=== PATIENT | male | born 1960 | race Caucasian/White ===

== ENCOUNTER 2021-07-07 08:22 | Outpatient (REF) | payer BC, SELFPAY ==
[2021-07-07 10:06] LABS: MANUAL DIFF FLAG NO
[2021-07-07 10:10] LABS: Basophils Percent Auto 0.4 % (0-2); Eosinophils Absolute Auto 0.2 X10*3/uL (0.0-0.4); Hematocrit 42.9 % (42-52); Hemoglobin 14.6 g/dl (14.0-18.0); Imm Gran Abs Auto 0.03 X10*3/uL (0.00-0.03); Imm Gran Pct Auto 0.4 % (0.0-0.4); Lymphocytes Absolute Auto 1.8 X10*3/uL (1.2-4.9); Mean Corpuscular Hemoglobin 30.9 pg (27.0-33.0); Mean Corpuscular Volume 90.7 fL (80-98); Mean Platelet Volume 9.9 fL (9.4-12.4); Monocytes Absolute Auto 0.6 X10*3/uL (0.1-1.2); Monocytes Percent Auto 9.3 % (2-11); Neutrophils Absolute Auto 4.1 X10*3/uL (2.0-8.3); Neutrophils Percent Auto 60.9 % (45-73); Platelet Count 282 X10*3/uL (160-400); Red Blood Count 4.73 X10*6/uL (4.60-5.80); Red Cell Distribution Width 11.9 % (11.0-16.0); White Blood Count 6.8 X10*3/uL (4.8-10.8)
[2021-07-07 10:44] LABS: Alanine Aminotransferase 75 U/L (0-40); Albumin Level 4.8 g/dL (3.5-5.0); Alkaline Phosphatase 71 U/L (39-117); Anion Gap 15 (12-20); Aspartate Amino Transferase 36 U/L (5-37); Bilirubin Total 0.9 mg/dL (0.0-1.0); Blood Urea Nitrogen 16 mg/dL (9-16); Calcium 9.4 mg/dL (8.4-10.2); Carbon Dioxide 26 mmol/L (22-29); Chloride 102 mmol/L (96-108); Cholesterol 212 mg/dL; Estimated Glomerular Filt Rate > 60; Glucose Random 113 mg/dL (60-115); HDL Cholesterol 84 mg/dL; LDL Cholesterol Calculated 91 mg/dl; Sodium 139 mmol/L (135-145); Total Protein 7.4 g/dL (6.5-8.0); Triglycerides 185 mg/dL; Uric Acid 6.7 mg/dL (3.4-7.0)
[2021-07-07 11:03] LABS: Free T4 (Free Thyroxine) 0.84 ng/dL (0.71-1.85); Prostate Specific Antigen Scr 0.82 ng/mL (<0.05-4.0); Thyroid Stimulating Hormone 1.78 uIU/mL (0.32-4.0)
[2021-07-07 11:32] LABS: Folate > 20.0 ng/mL (> or = 4.0); Vitamin B12 321 pg/mL (200-900)
== END 2021-07-07 08:23 | disposition home or self-care (01) ==
LOC: HO.10HDL 08:22
PROVIDERS: Visit Provider Internal Medicine
DX: Z12.5 Encounter for screening for malignant neoplasm of prostate (principal); E78.00 Pure hypercholesterolemia, unspecified; M10.9 Gout, unspecified
CPT/HCPCS: 36415; 80053; 80061; 82607; 82746; 84153; 84439; 84443; 84550; 85025

== ENCOUNTER 2022-07-24 09:29 | Outpatient (REF) | payer BC, SELFPAY ==
[2022-07-24 10:04] LABS: MANUAL DIFF FLAG NO
[2022-07-24 11:32] LABS: Basophils Absolute Auto 0.1 X10*3/uL (0.0-0.2); Eosinophils Absolute Auto 0.2 X10*3/uL (0.0-0.4); Eosinophils Percent Auto 2.4 % (0-4); Hematocrit 41.8 % (42.0-52.0); Hemoglobin 14.2 g/dl (14.0-18.0); Imm Gran Abs Auto 0.03 X10*3/uL (0.00-0.03); Imm Gran Pct Auto 0.4 % (0.0-0.4); Lymphocytes Absolute Auto 1.6 X10*3/uL (1.2-4.9); Lymphocytes Percent Auto 23.8 % (20-40); Mean Corpuscular Hemoglobin 30.9 pg (27.0-33.0); Mean Corpuscular Volume 90.9 fL (80.0-98.0); Mean Platelet Volume 9.8 fL (9.4-12.4); Monocytes Absolute Auto 0.6 X10*3/uL (0.1-1.2); Monocytes Percent Auto 9.2 % (2-11); Neutrophils Absolute Auto 4.3 x10*3/uL (2.0-8.3); Neutrophils Percent Auto 63.2 % (45-73); Platelet Count 299 X10*3/uL (160-400); White Blood Count 6.8 X10*3/uL (4.8-10.8)
[2022-07-24 12:04] LABS: Estimated Average Glucose 97 mg/dL
[2022-07-24 12:53] LABS: Free T4 (Free Thyroxine) 0.89 ng/dL (0.71-1.85); Prostate Specific Antigen Scr 0.85 ng/mL (<0.05-4.0); Thyroid Stimulating Hormone 1.51 uIU/mL (0.32-4.0)
[2022-07-24 12:58] LABS: Alanine Aminotransferase 75 U/L (0-40); Albumin Level 4.7 g/dL (3.5-5.0); Alkaline Phosphatase 77 U/L (39-117); Anion Gap 17 (12-20); Aspartate Amino Transferase 39 U/L (5-37); Bilirubin Total 0.8 mg/dL (0.0-1.0); Blood Urea Nitrogen 15 mg/dL (9-16); Calcium 9.2 mg/dL (8.4-10.2); Carbon Dioxide 25 mmol/L (22-29); Chloride 102 mmol/L (96-108); Cholesterol 207 mg/dL; Estimated Glomerular Filt Rate > 60; Glucose Random 111 mg/dL (60-115); HDL Cholesterol 90 mg/dL; LDL Cholesterol Calculated 93 mg/dl; Sodium 140 mmol/L (135-145); Total Protein 7.3 g/dL (6.5-8.0); Triglycerides 124 mg/dL; Uric Acid 5.8 mg/dL (3.4-7.0)
[2022-07-24 13:04] LABS: Folate > 20.0 ng/mL (> or = 4.0); Vitamin B12 322 pg/mL (200-900)
== END 2022-07-24 09:30 | disposition home or self-care (01) ==
LOC: HO.LAB 09:29
PROVIDERS: PCP Internal Medicine; Visit Provider Internal Medicine
DX: Z12.5 Encounter for screening for malignant neoplasm of prostate (principal); R73.02 Impaired glucose tolerance (oral); E78.5 Hyperlipidemia, unspecified; E78.00 Pure hypercholesterolemia, unspecified; M10.9 Gout, unspecified
CPT/HCPCS: 36415; 80053; 80061; 82607; 82746; 83036; 84153; 84439; 84443; 84550; 85025

== ENCOUNTER 2023-12-09 07:45 | Outpatient (REF) | payer MEDICARE, BC, SELFPAY ==
[2023-12-09 07:59] LABS: MANUAL DIFF FLAG NO
[2023-12-09 08:08] LABS: Basophils Percent Auto 0.8 % (0-2); Eosinophils Absolute Auto 0.1 X10*3/uL (0.0-0.4); Eosinophils Percent Auto 3.5 % (0-4); Hemoglobin 11.4 g/dl (14.0-18.0); Imm Gran Abs Auto 0.01 X10*3/uL (0.00-0.03); Imm Gran Pct Auto 0.3 % (0.0-0.4); Lymphocytes Absolute Auto 0.6 X10*3/uL (1.2-4.9); Lymphocytes Percent Auto 17.1 % (20-40); Mean Corpuscular HGB Conc 34.5 g/dl (31.0-36.0); Mean Corpuscular Hemoglobin 32.4 pg (27.0-33.0); Mean Corpuscular Volume 93.8 fL (80.0-98.0); Mean Platelet Volume 8.6 fL (9.4-12.4); Monocytes Absolute Auto 0.5 X10*3/uL (0.1-1.2); Neutrophils Absolute Auto 2.5 x10*3/uL (2.0-8.3); Neutrophils Percent Auto 66.3 % (45-73); Platelet Count 230 X10*3/uL (160-400); Red Blood Count 3.52 X10*6/uL (4.60-5.80); Red Cell Distribution Width 12.1 % (11.0-16.0); White Blood Count 3.8 X10*3/uL (4.8-10.8)
[2023-12-09 08:42] LABS: Alanine Aminotransferase 12 U/L (0-40); Albumin Level 4.4 g/dL (3.5-5.0); Alkaline Phosphatase 70 U/L (39-117); Anion Gap 10 (12-20); Aspartate Amino Transferase 14 U/L (5-37); Bilirubin Total 0.5 mg/dL (0.0-1.0); Blood Urea Nitrogen 25 mg/dL (9-16); Calcium 9.4 mg/dL (8.4-10.2); Carbon Dioxide 29 mmol/L (22-29); Chloride 100 mmol/L (96-108); Cholesterol 177 mg/dL (<200); Estimated Glomerular Filt Rate 43; Glucose Random 102 mg/dL (60-115); HDL Cholesterol 107 mg/dL (>40); LDL Cholesterol Calculated 65 mg/dL (<100); Potassium 4.4 mmol/L (3.3-5.1); Sodium 135 mmol/L (135-145); Total Protein 6.9 g/dL (6.5-8.0); Triglycerides 27 mg/dL (<150)
[2023-12-09 08:45] LABS: Estimated Average Glucose 85 mg/dL; Hemoglobin A1c % 4.6 % (<6.0)
[2023-12-09 09:01] LABS: Free T4 (Free Thyroxine) 0.87 ng/dL (0.71-1.85); Thyroid Stimulating Hormone 2.18 uIU/mL (0.32-4.0)
[2023-12-09 09:12] LABS: Folate 6.1 ng/mL (> or = 4.0); Prostate Specific Antigen Scr 1.81 ng/mL (<0.05-4.0); Vitamin B12 429 pg/mL (200-900)
[2023-12-12 22:33] LABS: Lyme Abs Screen <0.90 index
== END 2023-12-09 07:46 | disposition home or self-care (01) ==
LOC: HO.LAB 07:45
PROVIDERS: PCP Internal Medicine; Visit Provider Internal Medicine
DX: R73.02 Impaired glucose tolerance (oral) (principal); E78.00 Pure hypercholesterolemia, unspecified; E78.5 Hyperlipidemia, unspecified; D64.9 Anemia, unspecified; T14.8XXA Other injury of unspecified body region, initial encounter; W57.XXXA Bitten or stung by nonvenomous insect and other nonvenomous arthropods, initial encounter; Y93.9 Activity, unspecified; Y92.9 Unspecified place or not applicable; Y99.9 Unspecified external cause status; Z12.5 Encounter for screening for malignant neoplasm of prostate
CPT/HCPCS: 36415; 80053; 80061; 82607; 82746; 83036; 84153; 84439; 84443; 85025; 86617; 86618

== ENCOUNTER 2024-01-13 13:15 | Outpatient (AMB) | payer MEDICARE, BC, SELFPAY ==
[2024-01-13 13:16] VITALS: BP 116/58; PULSE 63; O2SAT 97; BMI 26.7
--- NOTE | 2024-01-13 13:16 | A.OFFVIS_ITS ---
Intake Vital Signs 01/13/24 13:16 01/13/24 13:40 Height 6 ft Weight 197 lb BMI 26.7 BP 116/58 L 130/80 Blood Pressure Location Lt brachial Lt brachial Position Sitting Pulse 63 Pulse Source Pulse Oximeter Pulse Oximetry (%) 97 Oxygen Delivery Method Room Air Intake Visit Reasons: AWV Media Strategist Required: No Allergies No Known Allergies Allergy (Verified 02/21/23 13:23) Medication List - Last Reconciled 01/13/24 by Arthur Overton MD albuterol sulfate 90 mcg/actuation inhalation allopurinol 100 mg PO BID amlodipine 10 mg PO DAILY atorvastatin 20 mg PO DAILY hydrochlorothiazide 25 mg PO DAILY 90 days irbesartan 300 mg PO DAILY 90 days prednisone 20 mg PO BID vardenafil 20 mg PO DAILY HPI AWV HPI Details 63-year-old overweight male with a histo ry of impaired glucose tolerance hypercholesterolemia hypertension gout last seen in July 2022. Patient is here for his annual well visit. Review of the notes in January 2024 h ad a chest x-ray for cough noted right Port-A-Cath in the SVC. 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 Father No problems noted. Sister Mental problem Social History (Updated 01/13/24 @ 13:43 by Arthur Overton MD) Housing: House Alcohol intake: current Alcohol intake frequency: a few times a month Comment: 2 days /week 3 beers Patient Tobacco Use Status: Former Tobacco user Years Smoked: quit 1999 e-Cigarette/Vaping Use: Never Used service: No Current occupational status: retired Cognitive needs: No Hearing needs: No Vision needs: Yes Questionnaire Medicare Wellness Checkup [age] What gender do you identify with?: male During the past 4 weeks, how much have you been bothered by emotional problems such as feeling anxious, depressed, irritable, sad or downhearted, and blue?: not at all During the past 4 weeks, has your physical & emotional health limited your social activities with family, friends, neighbors, or groups?: not at all During the past 4 weeks, how much bodily pain have you generally had?: no pain During the past 4 weeks, was someone available to help you if you needed & wanted help?: yes, as much as I wanted During the past 4 weeks, what was the hardest physical activity you could do for at least 2 minutes?: very heavy Can you get to places out of walking distance without help? (For eg., can you travel alone on buses, taxis or drive your car?): Yes Can you go shopping for groceries or clothes without someone's help?: Yes Can you prepare your own meals?: Yes Can you do your housework without help?: Yes Because of any health problems, do you need the help of another person with your personal care needs such as eating, bathing, dressing or getting around the house?: No Can you handle your own money without help?: Yes During the past 4 weeks, how would you rate your health in general?: very good During the past 4 weeks how have things been going for you?: pretty well Are you having difficulties driving your car?: no Do you always fasten your seat belt when you are in a car?: yes, usually During past 4 weeks, have you been bothered by the following: never: Falling or dizzy when standing up, Sexual problems?, Problems using the telephone? and Tiredness or fatigue? and seldom: Trouble eating well? and Teeth or denture problems? Have you fallen 2 or more times in the past year?: No Are you afraid of falling?: No Are you a smoker?: no During the past 4 weeks, how many drinks of wine, beer, or other alcoholic beverages did you have?: 1 drink or less per week Do you exercise for about 20 minutes 3 or more times a week?: no, I usually do not exercise this much Have you been given information to help with the following?: no: Hazards in your house that might hurt you? and no: Keeping track of your medications? How often do you have trouble taking medicines the way you have been told to take them?: I always take medicine as prescribed How confident are you that you can control & manage most of your health problems?: very confident What is your race?: White PHQ-9 Over the last 2 weeks, how often have you been bothered by any of the following problems? 1. Little interest or pleasure in doing things: not at all (pt recently DX with cancer ) 2. Feeling down, depressed, or hopeless: not at all 3. Trouble falling or staying asleep, or sleeping too much: not at all 4. Feeling tired or having little energy: not at all 5. Poor appetite or overeating: not at all 6. Feeling bad about yourself - or that you are a failure or have let yourself or your family down: not at all 7. Trouble concentrating on things, such as reading the newspaper or watching television: not at all 8. Moving or speaking so slowly that other people could have noticed. Or the opposite - being so fidgety or restless that you have been moving around a lot more than usual: not at all 9. Thoughts that you would be better off or of hurting yourself in some way: not at all Total score: 0 Depression Screening Interpretation: Negative Depression Screening Done: Yes 29276 - PHQ-9 Billing: Yes Source: Developed by Drs. Gino De La O, Ariane Pearce, Allen Campos and colleagues, with an educational mirza from [employer]. Review of Systems Const Denies poor appetite and Denies weakness Eyes Denies no additional complaints ENT Reports Normal hearing present, Denies dizziness, Denies nasal congestion, Denies tinnitus and Denies sore throat Card Denies chest pain, Denies syncope, Denies rapid heart rate and Denies dyspnea Resp Denies cough and Denies dyspnea GI Denies change in stool character, Reports constipation, Denies diarrhea, Denies nausea and Denies vomiting Denies dysuria and Denies urinary frequency Neuro Reports Normal hearing present, Denies confusion, Denies dizziness, Denies syncope and Denies weakness Psych Denies confusion Physical Exam Vital Signs: Last Vital Signs Pulse 63 01/13/24 13:16 BP 130/80 01/13/24 13:40 Pulse Ox 97 01/13/24 13:16 Oxygen Delivery Method Room Air 01/13/24 13:16 BMI result Body Mass Index 26.7 Const General: No confusion Orientation/consciousness: No confusion HEENT Head: Yes normocephalic Ears: external ears normal and TM's normal bilaterally Face and sinus: Yes normal facial exam Mouth: moist mucous membranes Throat: Yes tonsils normal Eyes Conjunctivae: conjunctivae normal Pupils: Equal, round and reactive pupils present and Pupil accommodation reflex normal Direct Ophthalmoscopy: normal light reflex Neck Neck: No lymphadenopathy Thyroid: Thyroid normal Chest Chest palpation & inspection: normal inspection of the chest Resp Effort & Inspection: normal respiratory effort and no audible wheezes Auscultation: clear to auscultation bilaterally, no crackles, no wheezes and lung sounds not diminished Cardio Rate: regular rate Rhythm: regular rhythm Peripheral pulses: radial pulses present and dorsalis pedis present GI Palpation (GI): no masses Auscultation: normal bowel sounds and normoactive bowel sounds Rectal Exam - Male: Yes deferred Skin General skin exam: no rashes or lesions noted Rashes: no rashes Neuro General: No confusion Cranial nerves: Yes Equal, round and reactive pupils present and Yes Normal hearing present Cognition (Neuro): normal cognition Gait exam (Neuro): Normal gait present Motor exam (neuro): 5/5 motor strength present throughout Deep tendon reflexes (DTR's): Right brachioradialis reflex intensity grade: 2+, Left brachioradialis reflex intensity grade: 2+, Right patellar reflex intensity grade: 2+ and Left patellar reflex intensity grade: 2+ Extrem General: No edema Assessment & Plan Assessment & Plan (1) Medicare annual wellness visit, initial: Code(s): Z00.00 - Encounter for general adult medical examination without abnormal findings Plan: Keep well hydrated, eat healthy, adequate sleep and keep active (2) Cancer of hypopharynx: Comment: Squamous cell June 2023 radiation 35 radiation 3 chemo session Code(s): C13.9 - Malignant neoplasm of hypopharynx, unspecified Plan: Continue to follow-up with Hematology-Oncology (3) Hypertension: Code(s): I10 - Essential (primary) hypertension Qualifiers: Hypertension type: primary hypertension Qualified Code(s): I10 - Essential (primary) hypertension Plan: Continue with blood pressure medication. Decrease salt intake and exercise on amlodipine 10 mg once a day hydrochlorothiazide 25 mg once a day ear irbesartan 300 mg once a day (4) Hyperlipidemia: Code(s): E78.5 - Hyperlipidemia, unspecified Qualifiers: Hyperlipidemia type: pure hypercholesterolemia Qualified Code(s): E78.00 - Pure hypercholesterolemia, unspecified Plan: Avoid fried foods, chicken skin, eggs, butter margarine, pastries and meat. Be it pork or beef they have a lot of cholesterol LDL goal of less than 130 and triglyceride of less than 150. Patient has lost a lot of weight in so will try to take off the medication and follow-up the cholesterol. (5) Renal insufficiency: Code(s): N28.9 - Disorder of kidney and ureter, unspecified Plan: Keep well hydrated avoid NSAIDs will do repeat testing (6) Colon cancer screening: Code(s): Z12.11 - Encounter for screening for malignant neoplasm of colon Plan: Referral to Gastroenterology (7) Cough: Code(s): R05.9 - Cough, unspecified Qualifiers: Cough type: chronic Qualified Code(s): R05.3 - Chronic cough Plan: Advised to try allergy medication and may take antitussive to help. Orders: Orders Comprehensive Met. Panel Today N28.9 - Disorder of kidney and ureter, unspecified Free T4 (Free Thyroxine) Today N28.9 - Disorder of kidney and ureter, unspecified IRON PROFILE Today D64.9 - Anemia, unspecified Reticulocyte Count Today D64.9 - Anemia, unspecified Vitamin B12 and Folate Today D64.9 - Anemia, unspecified Lipid Panel 3 Months E78.00 - Pure hypercholesterolemia, unspecified, E78.5 - Hyperlipidemia, unspecified Comprehensive Met. Panel 3 Months E78.5 - Hyperlipidemia, unspecified Thyroid Stimulating Hormone Today N28.9 - Disorder of kidney and ureter, unspecified Ferritin Today D64.9 - Anemia, unspecified Referrals Gastroenterology Referral Z12.11 - Encounter for screening for malignant neoplasm of colon Medications: Discontinued atorvastatin Discontinued Reason: Doctor's Order 20 mg PO DAILY 90 tabs 2RF Quality Reporting (2019) Depression/Bipolar (159/160/161/177) PHQ-9: Total score: 0 Coding Level of Care Code Medicare First (G0438) Diagnoses Medicare annual wellness visit, initial Z00.00 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 Primary hypertension I10 Hypertension type: primary hypertension Pure hypercholesterolemia E78.00 Hyperlipidemia type: pure hypercholesterolemia Renal insufficiency N28.9 Colon cancer screening Z12.11 Chronic cough R05.3 Cough type: chronic
[2024-01-13 13:40] VITALS: BP 130/80
== END 2024-01-13 14:18 | disposition home or self-care (01) ==
PROVIDERS: PCP Internal Medicine; Visit Provider Internal Medicine
DX: Z00.00 Encounter for general adult medical examination without abnormal findings (principal); C13.9 Malignant neoplasm of hypopharynx, unspecified; I10 Essential (primary) hypertension; E78.00 Pure hypercholesterolemia, unspecified; N28.9 Disorder of kidney and ureter, unspecified; Z12.11 Encounter for screening for malignant neoplasm of colon; R05.3 Chronic cough
CPT/HCPCS: G0438

== ENCOUNTER 2024-01-27 08:28 | Outpatient (REF) | payer MEDICARE, BC, SELFPAY ==
[2024-01-27 08:57] LABS: Immature Retic Fraction 13.2 % (2.3-13.4); Retic HGB Equivalent 36.2 pg (30.0-35.0); Reticulocyte Percent 2.1 % (0.5-1.8); Reticulocytes Absolute 0.078 X10*6/uL (0.026-0.095)
[2024-01-27 09:28] LABS: Alanine Aminotransferase 11 U/L (0-40); Albumin Level 4.4 g/dL (3.5-5.0); Alkaline Phosphatase 89 U/L (39-117); Anion Gap 14 (12-20); Aspartate Amino Transferase 13 U/L (5-37); Bilirubin Total 0.5 mg/dL (0.0-1.0); Blood Urea Nitrogen 22 mg/dL (9-16); Carbon Dioxide 25 mmol/L (22-29); Chloride 97 mmol/L (96-108); Estimated Glomerular Filt Rate 54; Glucose Random 91 mg/dL (60-115); Iron 73 mcg/dL (45-160); Percent Iron Saturation 30 % (15-50); Potassium 4.5 mmol/L (3.3-5.1); Sodium 131 mmol/L (135-145); Total Iron Binding Capacity 245 mcg/dL (228-428); Total Protein 7.3 g/dL (6.5-8.0); Unsaturated Iron Binding 172 ug/dL
[2024-01-27 09:48] LABS: Ferritin 569 ng/mL (20-250); Free T4 (Free Thyroxine) 0.89 ng/dL (0.71-1.85); Thyroid Stimulating Hormone 1.04 uIU/mL (0.32-4.0)
[2024-01-27 12:35] LABS: Folate 8.6 ng/mL (> or = 4.0); Vitamin B12 611 pg/mL (200-900)
== END 2024-01-27 08:29 | disposition home or self-care (01) ==
LOC: HO.LAB 08:28
PROVIDERS: PCP Internal Medicine; Visit Provider Internal Medicine
DX: D64.9 Anemia, unspecified (principal); N28.9 Disorder of kidney and ureter, unspecified
CPT/HCPCS: 36415; 80053; 82607; 82728; 82746; 83540; 84439; 84443; 85045

== ENCOUNTER 2024-05-30 11:23 | Outpatient (AMB) | payer MEDICARE, BC, SELFPAY ==
[2024-05-30 11:38] VITALS: BP 128/76; PULSE 86; O2SAT 92; BMI 21.8
--- NOTE | 2024-05-30 11:38 | A.OFFPC_ITS ---
Vital Signs 3 05/30/24 11:38 Height 6 ft Weight 161 lb BMI 21.8 BP 128/76 Blood Pressure Location Lt brachial Position Sitting Pulse 86 Pulse Source Pulse Oximeter Pulse Oximetry (%) 92 Oxygen Delivery Method Room Air Intake Visit Reasons: cholesterol Allergies pembrolizumab [From Keytruda] Adverse Reaction (Severe, Verified 05/30/24 11:43) Hives Tobacco use date assessed: 05/30/24 Fall risk assessment: No Falls in past year Last assessed Fall Risk: 05/30/24 Dental Screening Dental Screen Date: 05/30/24 Did you have a dental visit in the last 12 months?: Yes Did you have a dental problem in the last 6 months where you did not have access to dental care?: No Was dental information given to patient?: Patient has dentist HPI cholesterol 2 HPI0 Details 64-year-old male with a history of hypop harynx cancer hypertension hypercholesterolemia renal insufficiency coming in for follow-up. Last seen in January 2024. Review of the notes had a CT scan of the chest in 03/29/2024 showing no pulmonary emboli but had decreased right lower lobe mass mediastinal lymphadenopathy bilateral hilar lymphadenopathy and left adrenal nodule compatible with improved neoplastic process. Labs were done in 05/15/2024 showing severe anemia with hemoglobin of 7 and 21.7 elevated white blood cell of 12.3 platelet count of 472. Electrolytes are normal patient had a CT scan of the chest in March 26 basilar pleural effusion left extensive thickening of the left pleural space suspicious for malignant involvement mass on the right lower lobe secondary to neoplasm 6 cm multiple pulmonary nodules 13 mm in size mediastinal lymphadenopathy. PET scan showing progression of pulmonary disease with increase in size of the pulmonary nodule new loculated left-sided pleural effusion new FDG avid left adrenal mass and abdominal lymph nodes suspicious for metastatic disease interval decrease in FDG activity hypopharyngeal masses cervical lymph nodes April note from [facility] March 29 discharge on April 01 due to symptomatic anemia dehydration hypotension and drug rash with chills and near- syncope noted blister-like lesions lower chin and earlobe question of secondary to Keytruda patient was given hydroxyzine discontinue amlodipine. PAtient does have chemotherapy still carboplatin, tqaxotere and neulasta, For CT scan done, on ensure and drinking fluid [facility] Medical History (Updated 05/30/24 @ 12:12 by Arthur Overton MD) Upper respiratory tract infection Tick bite Port-A-Cath in place Obesity (BMI 30-39.9) Osteoarthritis, shoulder Degenerative disc disease, cervical Erectile dysfunction Impaired glucose tolerance Hyperlipidemia Hypertension Gout Surgical History (Updated 01/13/24 @ 13:43 by Arthur Overton MD) Feeding by G-tube History of strabismus surgery Family History (Updated 07/14/21 @ 09:21 by Noy Julian CMA) Mother No problems noted. Father No problems noted. Sister Mental problem Social History (Updated 01/13/24 @ 13:43 by Arthur Overton MD) Housing: House Alcohol intake: current Alcohol intake frequency: a few times a month Comment: 2 days /week 3 beers Patient Tobacco Use Status: Former Tobacco user Tobacco use type: Cigarette Years Smoked: quit 1999 e-Cigarette/Vaping Use: Never Used service: No Current occupational status: retired Cognitive needs: No Hearing needs: No Vision needs: Yes Questionnaire Thrive Questionnaire Date Thrive assessed: 05/30/24 I am a: Patient What is your living situation today?: I have a steady place to live Within the past 12 months, did the food you bought not last and you didn't have the money to get more?: Never true Within the past 12 months, did you worry whether your food would run out before you got money to buy more?: Never true Do you have trouble paying for medicines?: No Do you have trouble getting transportation to medical appointments?: No Do you have trouble paying your heating and electricity bill?: No Do you have trouble taking care of your child, family member or friend?: No Do you have trouble with day-to-day activities such as bathing, preparing meals, shopping, managing finances, etc.?: No Are you currently unemployed and looking for a job?: No Are you interested in more education?: No Currently or been in a relationship where the following occur: No concerns reported THRIVE Score: 0 AUDIT C Alcohol Use Questionnaire (AUDIT-C) 1. How often do you have a drink containing alcohol?: Monthly or less 2. How many drinks containing alcohol do you have on a typical day when you are drinking?: 1 or 2 3. How often do you have six or more drinks on one occasion?: Never Total Score: 1 BRUCE-7 AMB Questionnaire BRUCE-7 Date BRUCE - 7 assessed: 05/30/24 Feeling nervous, anxious, or on edge: 0 = Not at all Not being able to stop or control worryin = Not at all Worrying too much about different things: 0 = Not at all Trouble relaxin = Not at all Being so restless that it is hard to sit still: 0 = Not at all Becoming easily annoyed or irritable: 0 = Not at all Feeling afraid as if something awful might happen: 0 = Not at all Total BRUCE-7 score (0-4 normal; 5-9 mild; 10-14 moderate; 15-21 severe): 0 Source: Developed by Drs. Gino De La O, Ariane Pearce, Allen Campos and colleagues, with an educational mirza from [employer]. BRUCE-7 Assessment Billing BRUCE-7 Assessment Tool: BRUCE-7 Assessment 95093 Physical exam (Primary Care) Vital Signs: Last Vital Signs Pulse 86 05/30/24 11:38 BP 128/76 05/30/24 11:38 Pulse Ox 92 05/30/24 11:38 Oxygen Delivery Method Room Air 05/30/24 11:38 BMI result Body Mass Index 21.8 Tobacco/Smoking Status: Tobacco use Status Tobacco use date assessed 05/30/24 05/30/24 11:48 Patient Tobacco Use Status Former Tobacco user 05/30/24 11:48 Tobacco use type Cigarette 05/30/24 11:48 e-Cigarette/Vaping Use Never Used 05/30/24 11:48 Thrive Assessment: Date of Thrive Assessment Date Thrive assessed 05/30/24 05/30/24 11:48 Currently or been in a relationship where the following occur: No concerns reported Const General: alert; No acute distress Eyes Conjunctivae: conjunctivae normal Resp Auscultation: clear to auscultation bilaterally Cardio Rate: regular rate Rhythm: regular rhythm GI Inspection: Yes normal to inspection Back/Spine/Pelvis Back/spine/pelvis image: 2 1. 1 cm round pressure sore Extrem General: Yes normal to inspection and No edema Assessment and Plan Assessment & Plan (1) Stage IV squamous cell carcinoma of lung: Comment: 01/2024 Code(s): C34.90 - Malignant neoplasm of unspecified part of unspecified bronchus or lung Plan: Patient continues to be followed by hematology oncology chemotherapy (2) Cancer of hypopharynx: Comment: Squamous cell June 2023 radiation 35 radiation 3 chemo session Code(s): C13.9 - Malignant neoplasm of hypopharynx, unspecified Plan: Patient continues to be followed by hematology oncology and on chemotherapy (3) Anemia: Code(s): D64.9 - Anemia, unspecified (4) Hypertension: Code(s): I10 - Essential (primary) hypertension Qualifiers: Hypertension type: primary hypertension Qualified Code(s): I10 - Essential (primary) hypertension Plan: Continue to monitor (5) Allergic reaction: Code(s): T78.40XA - Allergy, unspecified, initial encounter Plan: Was given hydroxyzine (6) Pressure sore of lower back: Code(s): L89.109 - Pressure ulcer of unspecified part of back, unspecified stage Plan: discussed that need to get pressure out avoid getting infection,,optimize nutrition Orders: Referrals 2 Wound Care Referral L89.109 - Pressure ulcer of unspecified part of back, unspecified stage Coding Level of Care Code Est Pt Level 4 (85572) Diagnoses 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.90 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 Anemia D64.9 Primary hypertension I10 Hypertension type: primary hypertension Allergic reaction T78.40XA Pressure sore of lower back L89.109 Additional Codes BRUCE-7 Assessment Billing - BRUCE-7 Assessment Tool: BRUCE-7 Assessment [id number] ([id number])
== END 2024-05-30 12:24 | disposition home or self-care (01) ==
PROVIDERS: PCP Internal Medicine; Visit Provider Internal Medicine
DX: C34.90 Malignant neoplasm of unspecified part of unspecified bronchus or lung (principal); C13.9 Malignant neoplasm of hypopharynx, unspecified; D64.9 Anemia, unspecified; I10 Essential (primary) hypertension; T78.40XA Allergy, unspecified, initial encounter; L89.109 Pressure ulcer of unspecified part of back, unspecified stage
CPT/HCPCS: 99214

== ENCOUNTER 2024-09-05 11:00 | Outpatient (AMB) | payer MEDICARE, BC, SELFPAY ==
[2024-09-05 11:07] VITALS: BP 142/58; PULSE 72; O2SAT 95; BMI 20.6
--- NOTE | 2024-09-05 11:07 | A.OFFPC_ITS ---
Vital Signs 09/05/24 11:07 09/05/24 11:30 Height 6 ft Weight 152 lb BMI 20.6 BP 142/58 H 118/56 L Blood Pressure Location Lt brachial Lt brachial Position Sitting Sitting Pulse 72 Pulse Source Pulse Oximeter Pulse Oximetry (%) 95 Oxygen Delivery Method Room Air Intake Visit Reasons: 3 Month F/U Allergies pembrolizumab [From Keytruda] Adverse Reaction (Severe, Verified 09/05/24 11:07) Hives Medication List - Last Reconciled 09/05/24 by Ana Rosa Chan PA-C levothyroxine 50 mcg PO DAILY pantoprazole 40 mg PO DAILY Tobacco use date assessed: 09/05/24 Fall risk assessment: No Falls in past year Last assessed Fall Risk: 09/05/24 Dental Screening Dental Screen Date: 09/05/24 Did you have a dental visit in the last 12 months?: Yes Did you have a dental problem in the last 6 months where you did not have access to dental care?: No Was dental information given to patient?: Patient has dentist HPI 3 Month F/U HPI Details 64-year-old male with a history of hypop harynx cancer, hypertension, hypercholesterolemia, renal insufficiency coming in for follow-up. In review of the notes patient completed chest CT 07/31/2024 through [facility] showed resolution of previous multifocal ground-glass opacities, lobulated mass in the right lower lobe within decreased size and scattered small pulmonary nodules. No change of loculated left pleural effusion however increasing peripheral nodularity suggestive of worsening pleural metastatic disease. Mediastinal lymphadenopathy. Worsening upper retroperitoneal lymphadenopathy concerning for rodriguez metastatic disease and partially visible left adrenal nodule unchanged. Patient states he is continuing to follow with [facility] in has chemo treatments for the lung cancer and is no longer doing radiation. He does go to treatments weekly has blood pressure and blood work done at that time. He is being monitored presently for anemia. His last CT was told the chemoradiation has been working in the Cancer been shrinking and has a additional CT next week. He does mentioned since starting the new chemo drug for the lung cancer has had a cough which his oncologist is aware of. He has been taking Robitussin for the cough and noticed an increase in his blood pressure with this medication. [facility] Medical History Upper respiratory tract infection Tick bite Port-A-Cath in place Obesity (BMI 30-39.9) Osteoarthritis, shoulder Degenerative disc disease, cervical Erectile dysfunction Impaired glucose tolerance Hyperlipidemia Hypertension Gout Surgical History Feeding by G-tube History of strabismus surgery Family History Mother No problems noted. Father No problems noted. Sister Mental problem Social History Housing: House Alcohol intake: current Alcohol intake frequency: a few times a month Comment: 2 days /week 3 beers Patient Tobacco Use Status: Former Tobacco user Tobacco use type: Cigarette Years Smoked: quit 1999 e-Cigarette/Vaping Use: Never Used service: No Current occupational status: retired Cognitive needs: No Hearing needs: No Vision needs: Yes Questionnaire PHQ-9 Over the last 2 weeks, how often have you been bothered by any of the following problems? 1. Little interest or pleasure in doing things: not at all (pt recently DX with cancer ) 2. Feeling down, depressed, or hopeless: not at all 3. Trouble falling or staying asleep, or sleeping too much: not at all 4. Feeling tired or having little energy: not at all 5. Poor appetite or overeating: not at all 6. Feeling bad about yourself - or that you are a failure or have let yourself or your family down: not at all 7. Trouble concentrating on things, such as reading the newspaper or watching television: not at all 8. Moving or speaking so slowly that other people could have noticed. Or the opposite - being so fidgety or restless that you have been moving around a lot more than usual: not at all 9. Thoughts that you would be better off or of hurting yourself in some way: not at all Total score: 0 Depression Screening Interpretation: Negative Depression Screening Done: Yes 00311 - PHQ-9 Billing: Yes Source: Developed by Drs. Gino De La O, Ariane Pearce, Allen Campos and colleagues, with an educational mirza from [employer]. Thrive Questionnaire Date Thrive assessed: 09/05/24 I am a: Patient What is your living situation today?: I have a steady place to live Within the past 12 months, did the food you bought not last and you didn't have the money to get more?: Never true Within the past 12 months, did you worry whether your food would run out before you got money to buy more?: Never true Do you have trouble paying for medicines?: No Do you have trouble getting transportation to medical appointments?: No Do you have trouble paying your heating and electricity bill?: No Do you have trouble taking care of your child, family member or friend?: No Do you have trouble with day-to-day activities such as bathing, preparing meals, shopping, managing finances, etc.?: No Are you currently unemployed and looking for a job?: No Are you interested in more education?: No Currently or been in a relationship where the following occur: No concerns reported THRIVE Score: 0 AUDIT C Alcohol Use Questionnaire (AUDIT-C) 1. How often do you have a drink containing alcohol?: Monthly or less 2. How many drinks containing alcohol do you have on a typical day when you are drinking?: 1 or 2 3. How often do you have six or more drinks on one occasion?: Never Total Score: 1 BRUCE-7 AMB Questionnaire BRUCE-7 Date BRUCE - 7 assessed: 09/05/24 Feeling nervous, anxious, or on edge: 0 = Not at all Not being able to stop or control worryin = Not at all Worrying too much about different things: 0 = Not at all Trouble relaxin = Not at all Being so restless that it is hard to sit still: 0 = Not at all Becoming easily annoyed or irritable: 0 = Not at all Feeling afraid as if something awful might happen: 0 = Not at all Total BRUCE-7 score (0-4 normal; 5-9 mild; 10-14 moderate; 15-21 severe): 0 Source: Developed by Drs. Gino De La O, Ariane Pearce, Allen Campos and colleagues, with an educational mirza from [employer]. BRUCE-7 Assessment Billing BRUCE-7 Assessment Tool: BRUCE-7 Assessment 94174 Review of Systems Const Reports body aches, Denies chills, Denies fever(s), Denies headache(s) and Reports poor appetite Eyes Reports no additional complaints ENT Reports dysphagia, Denies dizziness, Denies headache(s) and Denies odynophagia Card Denies chest pain, Denies syncope, Denies edema, Denies irregular heart rhythm, Denies lightheadedness and Denies dyspnea Resp Reports cough, Denies hemoptysis, Denies excessive phlegm production and Denies dyspnea GI Denies abdominal pain, Reports dysphagia, Denies nausea, Denies odynophagia and Denies vomiting Reports no additional complaints Musc Reports no additional complaints and Denies abnormal gait Skin/Breast Reports system reviewed and no additional complaints, except as documented Neuro Denies abnormal gait, Denies dizziness, Denies syncope and Denies headache(s) Psych Reports no additional complaints Physical exam (Primary Care) Vital Signs: Last Vital Signs Pulse 72 09/05/24 11:07 BP 118/56 L 09/05/24 11:30 Pulse Ox 95 09/05/24 11:07 Oxygen Delivery Method Room Air 09/05/24 11:07 BMI result Body Mass Index 20.6 Tobacco/Smoking Status: Tobacco use Status Tobacco use date assessed 09/05/24 09/05/24 11:10 Patient Tobacco Use Status Former Tobacco user 09/05/24 11:10 Tobacco use type Cigarette 09/05/24 11:10 e-Cigarette/Vaping Use Never Used 09/05/24 11:10 PHQ-9: PHQ-9 Score PHQ-9: Total score 0 09/05/24 11:10 Depression Screening Interpretation: Negative Thrive Assessment: Date of Thrive Assessment Date Thrive assessed 09/05/24 09/05/24 11:10 Currently or been in a relationship where the following occur: No concerns reported Const General: cooperative, healthy appearing, comfortable and no acute distress Orientation/consciousness: patient oriented x3 HENMT Head: Yes normocephalic Ears: hearing grossly normal bilaterally General nose exam: Normal external nose present Eyes General: appearance normal, both eyes and all related structures Conjunctivae: conjunctivae normal Neck Neck: Yes full ROM and Yes no lymphadenopathy Resp Other: quieter lung sounds in the left lung base Effort & Inspection: normal respiratory effort Auscultation: clear to auscultation bilaterally, no crackles, no rales, no rhonchi and no wheezes Cardio Rate: regular rate Rhythm: regular rhythm Skin General skin exam: no rashes or lesions noted Neuro General: patient oriented x3 Gait exam (Neuro): Normal gait present Extrem General: Yes normal to inspection, Yes full ROM and No edema Psych Affect: normal affect Attitude: cooperative Insight: Good insight present (Psych) Judgement: Good judgement present (Psych) Coding Level of Care Code Est Pt Level 3 (47365) Diagnoses 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.90 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 Primary hypertension I10 Hypertension type: primary hypertension Pure hypercholesterolemia E78.00 Hyperlipidemia type: pure hypercholesterolemia Impaired glucose tolerance R73.02 Additional Codes BRUCE-7 Assessment Billing - BRUCE-7 Assessment Tool: BRUCE-7 Assessment 32675 ([id number]) PHQ-9 - 38943 - PHQ-9 Billing: Yes ([id number]) Assessment & Plan Assessment & Plan (1) Stage IV squamous cell carcinoma of lung: Comment: 01/2024 Code(s): C34.90 - Malignant neoplasm of unspecified part of unspecified bronchus or lung Category: Medical Plan: Following with Hematology/Oncology through [facility] and recent CT done. He will have additional CT next week and we will request these results. (2) Cancer of hypopharynx: Comment: Squamous cell June 2023 radiation 35 radiation 3 chemo session Code(s): C13.9 - Malignant neoplasm of hypopharynx, unspecified Category: Medical Plan: Following with [facility] hematology/oncology recent CT done and reviewed, additional CT next week. Is also scheduled for barium swallow and EGD in the next month. (3) Hypertension: Comment: Echocardiogram 06/18/2024 EF 55-60% ascending aorta 4 cm Code(s): I10 - Essential (primary) hypertension Category: Medical Qualifiers: Hypertension type: primary hypertension Qualified Code(s): I10 - Essential (primary) hypertension Plan: Discussed blood pressure safe cough medicines and advised to use Coricidin instead of Robitussin. Continue on current blood pressure medication. Avoid salt intake and encourage healthy diet and regular exercise. (4) Hyperlipidemia: Code(s): E78.5 - Hyperlipidemia, unspecified Category: Medical Qualifiers: Hyperlipidemia type: pure hypercholesterolemia Qualified Code(s): E78.00 - Pure hypercholesterolemia, unspecified Plan: Avoid foods that are high in cholesterol such as red meat, fried foods, eggs and baked goods. Triglyceride goal of less than 150 and LDL goal of less than 130. (5) Impaired glucose tolerance: Code(s): R73.02 - Impaired glucose tolerance (oral) Category: Medical Plan: Decrease the amount of carbohydrates such as pasta, bread, rice, and potatoes and limit the amount of sweets. Although fruits are generally healthy they should be eaten in moderation as they are still high in sugar. Plan This note was constructed using voice recognition software. While every effort has been made to ensure accuracy and laboratory geneticist, still areas may have been included sometimes these areas may affect the content or meeting of the given symptoms. Total time spent caring for the patient today was 20 minutes. This includes time spent before the visit reviewing the chart, time spent during the visit, and time spent after the visit and documentation.
[2024-09-05 11:30] VITALS: BP 118/56
== END 2024-09-05 11:37 | disposition home or self-care (01) ==
PROVIDERS: PCP Internal Medicine
DX: I10 Essential (primary) hypertension (principal); C34.90 Malignant neoplasm of unspecified part of unspecified bronchus or lung; C13.9 Malignant neoplasm of hypopharynx, unspecified; E78.00 Pure hypercholesterolemia, unspecified; R73.02 Impaired glucose tolerance (oral)

== ENCOUNTER → 2024-09-05 11:00 | Outpatient (BNVA) | payer MEDICARE, BC, SELFPAY | PROVIDERS: PCP Internal Medicine | DX: C34.90 Malignant neoplasm of unspecified part of unspecified bronchus or lung (principal); C13.9 Malignant neoplasm of hypopharynx, unspecified; I10 Essential (primary) hypertension; E78.00 Pure hypercholesterolemia, unspecified; R73.02 Impaired glucose tolerance (oral) | CPT/HCPCS: 96127; 99212 ==

== ENCOUNTER 2024-09-10 08:00 | Outpatient (REF) | payer MEDICARE, BC, SELFPAY ==
--- NOTE | ~2024-09-10 | FL_ITS ---
EXAMINATION: FL BARIUM SWALLOW CLINICAL INFORMATION: Dysphagia. Laryngeal cancer s/p chemoradiation. History of feeding tube. COMPARISON: None TECHNIQUE: Fluoroscopic air contrast upper GI examination was performed utilizing standard techniques with thin and thick barium and effervescent granules. Numerous spot images were obtained. FINDINGS: Lateral cine images of the oropharynx and hypopharynx demonstrate normal swallow mechanism with normal epiglottic inversion and soft palate elevation. Gross, silent tracheal aspiration was observed with thick barium. No nasopharyngeal reflux present. Hypopharyngeal structures appear normal without evidence of mass or diverticulum. There was no significant cricopharyngeal achalasia. There is moderate to severe intraluminal narrowing of the cervical esophagus at the level of C5-C6 that may represent esophageal web or a stricture due to prior radiation. FLUOROSCOPY TIME: 38 seconds Number of Spot Images: 1 Number of Cine: 2 DOSE AREA PRODUCT: 610. uGy-m2 (microgray-meter squared) FL/FL barium swallow IMPRESSION: 1. Gross tracheal aspiration with thick barium. No additional contrast was administered. 2. Moderate severe intraluminal narrowing of the cervical esophagus at level C5-C6 that may represent an esophageal web, or a short segment radiation-induced stricture. This procedure was performed by Tayo Miranda PA-C, and supervised by Dr. Baltazar Electronically signed by: Teddy Baltazar MD 09/11/2024 02:45 PM [facility] [place]
== END 2024-09-10 08:01 | disposition home or self-care (01) ==
LOC: HO.XRAY 08:00
PROVIDERS: PCP Internal Medicine; Visit Provider Internal Medicine Gastroenterology
DX: R13.10 Dysphagia, unspecified (principal)
CPT/HCPCS: 74220

== ENCOUNTER → 2024-09-10 08:02 | Outpatient (BNV) | payer MEDICARE, BC, SELFPAY | PROVIDERS: PCP Internal Medicine; Visit Provider Physician Assistant Surgical | DX: R13.10 Dysphagia, unspecified (principal) | CPT/HCPCS: 74221 ==

== ENCOUNTER → 2024-09-19 11:57 | Day surgery (SDC) | payer MEDICARE, BC, SELFPAY ==
[2024-09-17 15:18] VITALS: BMI 20.6
--- NOTE | 2024-09-18 13:16 | HO.ANESPROP2 ---
Documented by User: Lois Murillo NP 09/18/24 13:19 HPI - Anesthesia Eval Consult details Narrative: 64yo M for Upper Endoscopy with Balloon Dilitation SCC of hypopharynx with lung mets vs seperate primary lung ca - s/p radiation PMFSH Active Problems Active Problems: All Active Problems Pressure sore of lower back (Acute) Allergic reaction (Acute) Stage IV squamous cell carcinoma of lung (Acute) Cough (Acute) Colon cancer screening (Acute) Renal insufficiency (Acute) Medicare annual wellness visit, initial (Acute) Cancer of hypopharynx (Acute) Anemia (Acute) Annual physical exam (Acute) Osteoarthritis, shoulder (Acute) Degenerative disc disease, cervical (Acute) Impaired glucose tolerance (Acute) Hyperlipidemia (Acute) Hypertension (Acute) Gout (Acute) Past Medical History Medical History Upper respiratory tract infection Tick bite Port-A-Cath in place Obesity (BMI 30-39.9) Osteoarthritis, shoulder Degenerative disc disease, cervical Erectile dysfunction Impaired glucose tolerance Hyperlipidemia Hypertension Gout Family History Family History Mother No problems noted. Father No problems noted. Sister Mental problem Surgical History Surgical History Feeding by G-tube History of strabismus surgery Social History Social History Housing: House Are you a primary intensive care unit registered nurse to a significant other at home: No Alcohol intake: current Alcohol intake frequency: a few times a month Comment: 2 days /week 3 beers Patient Tobacco Use Status: Former Tobacco user Tobacco use type: Cigarette Years Smoked: quit 1999 e-Cigarette/Vaping Use: Never Used Use of substances other than those prescribed or required for medical reasons: No Have you been hit, kicked, punched, or otherwise hurt by someone within the past year? If so, by whom?: No Are you DNR?: No Advance Directives: No Advance Directives Information Provided: Yes Recently lost weight without trying: No Nutrition Risks: No Nutritional Risk Poor oral hygiene: No service: No Current occupational status: retired Cognitive needs: No Hearing needs: No Vision needs: Yes Meds Allergies Allergy/AdvReac Type Severity Reaction Status Date / Time [facility] AdvReac Severe Hives Verified 09/05/24 11:07 Home Medications ?Medication ?Instructions ?Recorded ?Confirmed ?Last Taken ?Type pantoprazole 40 mg tablet,delayed 40 mg PO DAILY 05/30/24 09/05/24 Unknown History release levothyroxine 50 mcg capsule 50 mcg PO DAILY 09/05/24 09/05/24 09/19/24 10:00 History Exam Height,Weight and Vital Signs: Height 6 ft Weight 68.946 kg Narrative Narrative: ECHO 06/2024 OK Assessment and Plan Assessment Anesthesia Assessment: Chart Reviewed Documented by User: Richelle Zarate MD 09/19/24 13:36 [facility] Past Medical History Medical History Upper respiratory tract infection Tick bite Port-A-Cath in place Obesity (BMI 30-39.9) Osteoarthritis, shoulder Degenerative disc disease, cervical Erectile dysfunction Impaired glucose tolerance Hyperlipidemia Hypertension Gout Family History Family History Mother No problems noted. Father No problems noted. Sister Mental problem Family history of problems with anesthesia: No Surgical History Surgical History Feeding by G-tube History of strabismus surgery History of Problems with Anesthesia: No Social History Social History Housing: House Are you a primary intensive care unit registered nurse to a significant other at home: No Alcohol intake: current Alcohol intake frequency: a few times a month Comment: 2 days /week 3 beers Patient Tobacco Use Status: Former Tobacco user Tobacco use type: Cigarette Years Smoked: quit 1999 e-Cigarette/Vaping Use: Never Used Use of substances other than those prescribed or required for medical reasons: No Have you been hit, kicked, punched, or otherwise hurt by someone within the past year? If so, by whom?: No Are you DNR?: No Advance Directives: No Advance Directives Information Provided: Yes Recently lost weight without trying: No Nutrition Risks: No Nutritional Risk Poor oral hygiene: No service: No Current occupational status: retired Cognitive needs: No Hearing needs: No Vision needs: Yes Meds Allergies Allergy/AdvReac Type Severity Reaction Status Date / Time pembrolizumab [From [email or web address]] AdvReac Severe Hives Verified 09/05/24 11:07 Home Medications ?Medication ?Instructions ?Recorded ?Confirmed ?Last Taken ?Type pantoprazole 40 mg tablet,delayed 40 mg PO DAILY 05/30/24 09/05/24 Unknown History release levothyroxine 50 mcg capsule 50 mcg PO DAILY 09/05/24 09/05/24 09/19/24 10:00 History Exam Airway Mallampati Class: II TM Dist: >3cm Heart: rrr Lungs: cta Assessment and Plan Assessment Anesthesia Assessment: Anesthesia Plan Discussed Final Anesthetic Review Family History of Problems with Anesthesia: No History of Problems with Anesthesia: No NPO: Yes ASA Class: III Final Preanesthetic Review: No Changes in Pt Med Stat, Meds/Allgs Chart Reviewed, Consent Obtained/Reviewed and Anes Risks/Benef Reviewed Patient Risk: Intermediate Procedure Risk: Low Anesthetic Plan Anesthetic Plan: GA Disposition: Standard PACU
[2024-09-19 12:14] VITALS: BMI 20.2
[2024-09-19 12:33] VITALS: BP 130/62; PULSE 80; RESP 20; TEMP 36.3; O2SAT 98
[2024-09-19] MEDS: Lactated Ringers 1,000 ML 100 ML IVCONT (12:43)
--- NOTE | 2024-09-19 13:09 | MHC.SHP ---
Pre-Procedural Eval Section A - 24 Hr Update-Section A only Date of Service: 09/19/24 Section B - Complete if H&P > 30 days Chief Complaint: Dysphagia, unspecified Details of Present Illness: see H&P no changes Relevant Family History (Specify if Yes): No Relevant Social History: None Present Medications: see Short Stay Collaborative assessment Medical History: No relevant PMH History of Previous Operations: No relevant previous surgery Allergies: Allergies Allergy/AdvReac Type Severity Reaction Status Date / Time pembrolizumab [From [facility]] AdvReac Severe Hives Verified 09/05/24 11:07 Review of Systems Sugical H&P ROS: Negative: Constitution, Cardiovascular, Respiratory, Neurological, Psychiatric, Hem-Onc, Allergic/Immunologic, Gastrointestinal, Genitourinary, Musculoskeletal, Integumentary, Endocrine and Eyes/Ears/Nose/Throat Exam Surgical H&P Exam: Normal: HEENT, Normal: Heart, Normal: Lungs, Normal: Extremities, Normal: Abdomen, Normal: Skin and Normal: Neurological Plan Diagnosis/Plan: Unchanged I have reviewed the history and physical and performed a pertinent physical examination on my patient. No changes have occurred unless specified. Time Spent With Patient Time: Total time managing care of this patient today ____ minutes.
--- NOTE | 2024-09-19 14:45 | PC.NURSE ---
Case with Dr. Gaines cancelled per anesthesia. Patient and family aware and understand plan moving forward. IV removed, tolerated well. Patient left preop via wheelchair with all belongings and escorted downstairs by a nurse to family in front lobby.
== END ==
LOC: HO.SSS 11:58
PROVIDERS: PCP Internal Medicine; Visit Provider Internal Medicine Gastroenterology
DX: R13.10 Dysphagia, unspecified (principal); Z53.8 Procedure and treatment not carried out for other reasons; C13.9 Malignant neoplasm of hypopharynx, unspecified; C78.00 Secondary malignant neoplasm of unspecified lung; Z95.828 Presence of other vascular implants and grafts; I10 Essential (primary) hypertension; Z79.899 Other long term (current) drug therapy; Z88.8 Allergy status to other drugs, medicaments and biological substances; Z87.891 Personal history of nicotine dependence
CPT/HCPCS: J2704

== ENCOUNTER 2024-09-21 11:33 | Outpatient (REF) | payer MEDICARE, BC, SELFPAY ==
[2024-09-21 13:03] LABS: Blood Urea Nitrogen 34 mg/dL (9-16); Estimated Glomerular Filt Rate > 60
== END 2024-09-21 11:34 | disposition home or self-care (01) ==
LOC: HO.LAB 11:33
PROVIDERS: PCP Internal Medicine; Visit Provider Internal Medicine Gastroenterology
DX: C13.9 Malignant neoplasm of hypopharynx, unspecified (principal)
CPT/HCPCS: 36415; 82565; 84520

== ENCOUNTER 2024-09-28 09:08 | Outpatient (REF) | payer MEDICARE, BC, SELFPAY ==
--- NOTE | ~2024-09-28 | CT_ITS ---
EXAMINATION: CT SOFT TISSUE NECK WITH CONTRAST CLINICAL INFORMATION: Evaluate airway, squamous cell cancer COMPARISON: None available. TECHNIQUE: Following the intravenous administration of 60 mL of Omnipaque 350 intravenous contrast, helical imaging was performed in the axial plane with generation of coronal and sagittal reformatted images. This CT examination was performed using dose optimization techniques as appropriate, variously including the following: *Automated exposure control *Adjustment of mA and/or kV according to patient size (this includes techniques or standardized protocols for targeted exams where dose is matched to indication/reason for exam; i.e. extremities or head) *Use of iterative reconstruction technique DLP: 349 mGy-cm FINDINGS: There is diffuse soft tissue thickening involving the supraglottic and glottic laryngeal structures with near complete to complete effacement of the larynx at these levels. Within the upper mediastinum, there is a right paratracheal mass measuring up to 4.7 cm which demonstrates internal hypodensity. This mass abuts the upper cervical trachea with loss of fat plane concern for mural invasion. There is minimal mass effect without significant luminal narrowing. No suspiciously enlarged neck lymph node. The nasopharynx, oropharynx, and hypopharynx are unremarkable. The parotid, submandibular, and thyroid glands are unremarkable. The visualized orbits are unremarkable. Mild mucosal thickening of the paranasal sinuses. Small right mastoid effusion. The visualized vasculature of the neck are unremarkable. The imaged portions of the brain are unremarkable. No acute osseous abnormality. No lytic or blastic osseous lesions. Multilevel degenerative changes of the visualized spine. Tree-in-bud opacification in the posterior aspect of the right upper lobe. Focal nodular pleural thickening along the posterior medial aspect of the left lung which involvement of the left posterior fourth rib. Partially imaged loculated left pleural effusion. CT/CT soft tissue neck w IV con IMPRESSION: -Diffuse soft tissue thickening involving the supraglottic and glottic laryngeal structures with near complete to complete effacement of the larynx at these levels. No discrete nodularity or mass identified. Recommend there is visualization. -Right paratracheal mass with loss of fat plane with the upper cervical trachea likely reflects malignant process and is concerning for mural invasion. Minimal mass effect on the upper cervical trachea without significant luminal narrowing. -Tree-in-bud opacification in the right upper lobe posteriorly may reflect infectious process. -Focal nodular pleural thickening along the posterior medial aspect of the left lung which involvement of the left posterior fourth rib and partially imaged loculated left pleural effusion. Recomment dedicated CT chest. Electronically signed by: Luis Manuel Khan MD 09/28/2024 03:16 PM [facility]
[2024-09-28] MEDS: iohexoL 350 MG/ML 100 ML INFUS..BTL IV (09:47)
== END 2024-09-28 09:09 | disposition home or self-care (01) ==
LOC: HO.CT 09:08
PROVIDERS: PCP Internal Medicine; Visit Provider Internal Medicine Gastroenterology
DX: C13.9 Malignant neoplasm of hypopharynx, unspecified (principal)
CPT/HCPCS: 70491; Q9967